=== PATIENT | female | born 1965 | race Caucasian/White ===

== ENCOUNTER 2022-10-19 17:37 | Emergency (ER) | payer MEDICAID ==
[~2022-10-19] VITALS: Ht 152.4 cm; Wt 88.5 kg
[2022-10-19 18:54] VITALS: BP_SYST 142
--- NOTE | 2022-10-19 19:35 | NUR ---
ER in triage examining patient.
[2022-10-19] MEDS ORDERED: HYDR-3917 PO (20:46)
[2022-10-19] MEDS ORDERED: IBUP-1969 PO (20:46)
--- NOTE | 2022-10-19 20:58 | NUR ---
Patient c/o left ankle pain with swelling. She describes her pain as constant and nonradiating. Patient states that her symptoms started 2 hours prior to arrival after she tripped over her [place] tree and subsequently twisting her ankle. Patient's pain is made worse with weightbearing and ambulation. Denies relieving factors. Denies taking medication prior to arrival to the emergency department. Denies numbness or tingling. Patient AAO x 4, breathing easy, respirations even unlabored.
[2022-10-19] MEDS ORDERED: HYDROcodone/ACETAMIN 10-325 MG TAB PO ONE (21:00)
[2022-10-19] MEDS ORDERED: IBUPROFEN 800 MG TABLET PO ONE (21:00)
[2022-10-19 21:55] VITALS: BP_SYST 138
--- NOTE | 2022-10-19 21:55 | NUR ---
Patient given written and verbal discharge instructions and verbalizes understanding. ER MD discussed with patient the results and treatment provided. Patient in stable condition. Rx of [place] 5/325, Ibuprofen sent to pharmacy of choice by ER MD. Patient educated on pain management and to follow up with PMD. Opportunity for questions provided and answered.
== END 2022-10-19 21:55 | disposition home or self-care (01) ==
LOC: SED 17:37
DX: S82.62XA Displaced fracture of lateral malleolus of left fibula, initial encounter for closed fracture (principal); Z79.899 Other long term (current) drug therapy; W60.XXXA Contact with nonvenomous plant thorns and spines and sharp leaves, initial encounter; Y93.89 Activity, other specified; Y92.89 Other specified places as the place of occurrence of the external cause; Y99.8 Other external cause status
CPT/HCPCS: 99283

== ENCOUNTER 2023-03-23 19:14 | Emergency (ER) | payer MEDICAID ==
[~2023-03-23] VITALS: Ht 149.9 cm; Wt 96.2 kg
[~2023-03-23 19:14] MED LIST: HYDR-3917 PO; IBUP-1969 PO
[2023-03-23 19:27] VITALS: BP_SYST 150
[2023-03-23] MEDS ORDERED: KETOROLAC TROMETHAMINE 60 MG/2 ML VIAL IM ONE (21:00)
[2023-03-23] MEDS ORDERED: IBUP-1971 PO (21:30)
[2023-03-23] MEDS ORDERED: DICL20GE TP (21:30)
[2023-03-23 21:44] VITALS: BP_SYST 134
== END 2023-03-23 21:55 | disposition home or self-care (01) ==
LOC: SED 19:14
DX: M75.32 Calcific tendinitis of left shoulder (principal); M25.512 Pain in left shoulder; Z79.899 Other long term (current) drug therapy
CPT/HCPCS: 99283; 93005; 73030; 96372; J1885